=== PATIENT | female | born 1975 | race Two or more races ===

== ENCOUNTER 2018-05-18 07:34 | Emergency (ER) | payer MEDICAID, OTHER ==
[~2018-05-18] VITALS: Ht 165.1 cm; Wt 75.0 kg
[2018-05-18] MEDS ORDERED: TETRACAINE 0.5% OPHTH DROPS 4ML OP ONE (08:00)
[2018-05-18] MEDS ORDERED: FLUORESCEIN SODIUM 1MG/STRIP OP ONE (08:00)
[2018-05-18] MEDS ORDERED: IBUPROFEN 600MG TABLET PO ONE (08:15)
[2018-05-18 08:39] VITALS: BP 107/88
== END 2018-05-18 08:40 | disposition home or self-care (01) ==
LOC: ER 07:34
DX: H11.32 Conjunctival hemorrhage, left eye (principal)
CPT/HCPCS: 81025; 99283; 99284

== ENCOUNTER 2018-11-11 12:50 | Emergency (ER) | payer MEDICAID, OTHER ==
[~2018-11-11] VITALS: Ht 165.1 cm; Wt 74.0 kg
[2018-11-11] MEDS ORDERED: ACETAMINOPHEN 325MG TABLET PO ONE (14:00)
[2018-11-11 14:54] VITALS: BP 110/80
== END 2018-11-11 14:56 | disposition home or self-care (01) ==
LOC: ER 12:50
DX: M25.551 Pain in right hip (principal); W19.XXXA Unspecified fall, initial encounter; Y93.89 Activity, other specified; Y92.89 Other specified places as the place of occurrence of the external cause
CPT/HCPCS: 73502; 81025; 99283